=== PATIENT | female | born 1985 | race Caucasian/White ===

== ENCOUNTER 2020-04-05 08:54 | Emergency (ER) | payer OTHER ==
[~2020-04-05] VITALS: Ht 160 cm; Wt 90.7 kg
[~2020-04-05 08:54] MED LIST: ALBU90OI INH; ALBU90OI6 INH; BIRTH CONTROL; BUDE200IP IH; BUDE200IP INH; Bactrim Ds Tab1 EACH PO; CEPH500 PO; CLIN300 PO; CRUTCH3 USE; HYDACE5 PO; MONONESSA PO; NAPR500 PO; PANT20 PO; PRED10 PO; Prednisone20 MG PO; RANI150 PO; RXHYDACE PO; SULTRIDS PO; Tylenol325 MG PO
[2020-04-05] MEDS ORDERED: Prednisone20 MG PO (09:31)
== END 2020-04-05 09:38 | disposition home or self-care (01) ==
LOC: ER 08:54
DX: J45.901 Unspecified asthma with (acute) exacerbation (principal); F17.200 Nicotine dependence, unspecified, uncomplicated
CPT/HCPCS: 71045; 99285-25

== ENCOUNTER 2020-11-19 23:22 | Emergency (ER) | payer OTHER ==
[~2020-11-19] VITALS: Ht 177.8 cm; Wt 113.4 kg
[2020-11-20] MEDS ORDERED: PRED20 PO (00:32)
== END 2020-11-20 00:30 | disposition home or self-care (01) ==
LOC: ER 23:22
DX: J45.901 Unspecified asthma with (acute) exacerbation (principal); F17.210 Nicotine dependence, cigarettes, uncomplicated
CPT/HCPCS: 36415; 94644; 96374; 99284-25; J2930